=== PATIENT | female | born 1980 | race Caucasian/White ===

== ENCOUNTER → 2022-02-19 07:42 | Outpatient (CLI) | payer OTHER, SELFPAY ==
--- NOTE | ~2022-02-19 | US_ITS ---
EXAMINATION: US pelvic complete w TV DATE: 02/19/2022 08:33 INDICATION: Abnormal uterine and vaginal bleeding TECHNIQUE: Multiple transabdominal and endovaginal sonographic images of the pelvis were obtained. COMPARISON: None. FINDINGS: The uterus measures 10.0 x 3.6 x 4.7 cm. The endometrial complex measures 7 mm. There is a 1.3 x 0.5 x 0.9 cm subtle hyperechoic area abutting the endometrial complex. The right ovary is not v isualized however no right adnexal abnormality is seen. The left ovary measures 2.6 x 2.4 x 3.1 cm. T here is normal vascular flow in the left ovary. There is no free fluid in the pelvis. IMPRESSION: 1. 1.3 cm subtle hyperechoic area abutting the endometrial complex, possibly a polyp. Reviewed, dictated and finalized at location A.
== END ==
PROVIDERS: Visit Provider Obstetrics & Gynecology
DX: N93.9 Abnormal uterine and vaginal bleeding, unspecified (principal)
CPT/HCPCS: 76830; 76856

== ENCOUNTER 2025-08-04 11:08 | Emergency (ER) | payer OTHER, SELFPAY ==
[2025-08-04 11:11] VITALS: BP 137/83; PULSE 94; RESP 16; TEMP 36.6; O2SAT 100
--- NOTE | 2025-08-04 11:35 | ED_ITS ---
HPI - General Adult General Chief complaint: Recheck/Abnormal Lab/Rx Stated complaint: pain to right hand Time Seen by Provider: 08/04/25 11:13 History of Present Illness HPI narrative: Patient is a 45-year-old female who presents ER with pain to the dorsum of the right hand. It is in IV site from her hysterectomy 5 days ago. Woke up this morning it was swollen and bruised. No known trauma but a dog did jump on her last night. She has been healing well in terms of her abdomen since her hysterectomy. She has been having bowel movements and no vaginal bleeding. Reports her pain is well controlled at home. No chest pain or shortness of breath. No urinary frequency urgency or dysuria. No swelling of her right arm or streaking up her right arm. Related Data Allergies Allergy/AdvReac Type Severity Reaction Status Date / Time tramadol Allergy Intermediate Rash Verified 08/04/25 11:11 Review of Systems Constitutional: Constitutional: Reports no additional constitutional complaints Cardiovascular: Cardiovascular: Reports no additional cardiovascular compl aints Respiratory: Respiratory: Reports no additional respiratory complaints Gastrointestinal: Gastrointestinal: Reports no additional gastrointestinal complaints Genitourinary: Genitourinary: Reports no additional female genitourinary co mplaints Integumentary/Breasts: Skin/Breast: Reports system reviewed and no additional complaints, except as docu PMFSH Past Medical History Medical History (Updated 08/04/25 @ 11:44 by Daniel Kearns MD) Healthy female adult Surgical History Surgical History (Updated 08/04/25 @ 11:38 by Daniel Kearns MD) History of hysterectomy Exam Narrative: GENERAL: Well-appearing, well-nourished, and in no acute distress. HEAD: Normocephalic, atraumatic. ENT: Mucous membranes moist. EXTREMITIES: Normal range of motion. No edema. SKIN: Warm, dry, no rash. Small hematoma under IV catheter site right hand. No lymphangitic streaking or red streaking or from palpable cord. NEURO: Alert and oriented x3. PSYCH: Normal mood and affect. Course Course Emergency Course: Hematoma versus early superficial thrombophlebitis. Will treat with an Shawn wrap, anti-inflammatories, and warm compresses. Vital Signs Vital signs: Vital Signs Temperature 97.8 F 08/04/25 11:11 Pulse Rate 94 08/04/25 11:11 Respiratory Rate 16 08/04/25 11:11 Blood Pressure 137/83 08/04/25 11:11 Pulse Oximetry 100 08/04/25 11:11 Temperature 97.8 F 08/04/25 11:11 Pulse Rate 94 08/04/25 11:11 Respiratory Rate 16 08/04/25 11:11 Blood Pressure 137/83 08/04/25 11:11 Pulse Oximetry 100 08/04/25 11:11 Medical Decision Making Vital Signs Vital Signs: Vital Signs Temperature 97.8 F 08/04/25 11:11 Pulse Rate 94 08/04/25 11:11 Respiratory Rate 16 08/04/25 11:11 Blood Pressure 137/83 08/04/25 11:11 Pulse Oximetry 100 08/04/25 11:11 Temperature 97.8 F 08/04/25 11:11 Pulse Rate 94 08/04/25 11:11 Respiratory Rate 16 08/04/25 11:11 Blood Pressure 137/83 08/04/25 11:11 Pulse Oximetry 100 08/04/25 11:11 Discharge Plan Discharge Clinical Impression: Hematoma of hand Patient Disposition: Home Condition: Stable Instructions: Hematoma (ED) Additional Instructions: Treat the area with an Shawn wrap, warm compresses, and anti-inflammatory medication. Return the ER if you have additional concerns. Additionally return the ER if your right arm was swelling, you have chest pain with shortness of breath, or you have red streaking up the arm. Patient Language: [place] Prescriptions: New naproxen 375 mg tablet 375 mg PO BID Qty: 14 0RF Follow-up/Referrals: JUANPABLO,WALTER [Other] - 1 Week
== END 2025-08-04 11:55 | disposition home or self-care (01) ==
PROVIDERS: Emergency Provider Emergency Medicine
DX: S60.221A Contusion of right hand, initial encounter (principal); X58.XXXA Exposure to other specified factors, initial encounter
CPT/HCPCS: 99283